=== PATIENT | female | born 1990 | race Caucasian/White ===

== ENCOUNTER 2016-07-02 19:04 | Emergency (ER) | payer BC, OTHER ==
[2016-07-02 19:10] VITALS: TEMP 98
[2016-07-02] MEDS ORDERED: LORazepam 2 MG/ML SYRINGE IV STA (19:33)
[2016-07-02] MEDS ORDERED: SODIUM CHLORIDE 0.9% 1,000 ML IV STA ×2 (19:33)
--- NOTE | 2016-07-02 20:01 | ED ---
General Adult HPI - General Chief complaint: Shortness of Breath Stated complaint: Diff breathing Time Seen by Provider: 07/02/16 19:23 Source: patient, RN notes reviewed Mode of arrival: wheelchair Limitations: no limitations - History of Present Illness Initial comments: Patient 25-year-old female who presents emergency room today with a chief complaint of increased shortness of breath over the last 2 days. [facility]. She states she was given a anti-inflammatory discharged home after chest x-ray and EKG. States she follow-up the family doctor today who gave her inhaler. States no improvement of symptoms. States feeling short of breath like she cannot take a deep breath. She does admit to some numbness tingling to her hands and feet bilaterally. She denies any other complaints or associated symptoms. Patient denies any recent fever, chills, chest pain, back pain, abdominal pain, nausea or vomiting, dysuria or hematuria, constipation or diarrhea, headaches or visual changes, or any other complaints. - Related Data Home Medications Medication Instructions Recorded Confirmed Albuterol Sulfate [Proair Hfa] 2 puff INHALATION RT-Q6H PRN 07/02/16 07/02/16 Phentermine HCl [Adipex-P] 37.5 mg PO QAM 07/02/16 07/02/16 Previous Rx's Medication Instructions Recorded ALPRAZolam [Xanax] 0.5 mg PO BID #10 tablet 07/02/16 Allergies Allergy/AdvReac Type Severity Reaction Status Date / Time Sulfa (Sulfonamide Allergy Unknown Unknown Verified 07/02/16 22:18 Antibiotics) Childhood Review of Systems ROS Statement: Those systems with pertinent positive or pertinent negative responses have been documented in the HPI. ROS Other: All systems not noted in ROS Statement are negative. Past Medical History Additional Past Medical History / Comment(s): ovarian cyst, blood clotting disorder History of Any Multi-Drug Resistant Organisms: None Reported Past Surgical History: Section Past Psychological History: No Psychological Hx Reported Smoking Status: Never smoker Past Alcohol Use History: None Reported Past Drug Use History: None Reported General Exam - General Exam Comments Initial Comments: General: The patient is awake and alert, in no distress, and does not appear acutely ill. Eye: Pupils are equal, round and reactive to light, extra-ocular movements are intact. No nystagmus. There is normal conjunctiva bilaterally. No signs of icterus. Ears, nose, mouth and throat: There are moist mucous membranes and no oral lesions. Neck: The neck is supple, there is no tenderness or JVD. Cardiovascular: There is a regular rate and rhythm. No murmur, rub or gallop is appreciated. Respiratory: Lungs are clear to auscultation, respirations are non-labored, breath sounds are equal. No wheezes, stridor, rales, or rhonchi. Gastrointestinal: Soft, non-distended, non-tender abdomen without masses or organomegaly noted. There is no rebound or guarding present. No CVA tenderness. Bowel sounds are unremarkable. Musculoskeletal: Normal ROM, no tenderness. Strength 5/5. Sensation intact. Pulses equal bilaterally 2+. Neurological: A&O x 3. CN II-XII intact, There are no obvious motor or sensory deficits. Coordination appears grossly intact. Speech is normal. Skin: Skin is warm and dry and no rashes or lesions are noted. Psychiatric: Cooperative, appropriate mood & affect, normal judgment. Limitations: no limitations Course Vital Signs 07/02/16 07/02/16 19:07 19:47 Temperature 98.0 F Pulse Rate 130 H 73 Respiratory 24 16 Rate Blood Pressure 217/80 118/71 O2 Sat by Pulse 100 100 Oximetry EKG Findings - EKG Comments: EKG Findings:: EKG performed at 1940: Shows normal sinus rhythm at 96 beats per minute. VT interval 114. QRS 82. QT/QTC 346/437. No acute ST changes. Medical Decision Making - Medical Decision Making Patient reexamined at this time shows no signs of distress. Patient's pulse ox 100% on room air. Patient's labs from [facility] reviewed had a negative D-dimer test. Labs were unremarkable. Chest x-ray. Chest x-ray 2 days. Patient's labs reviewed are negative. Negative cardiac enzymes. Patient still feeling short of breath at times. Improved after Ativan. Admits numbness tingling bilateral Upper and lower extremities. Was discussed patient about hyperventilation syndrome. CT of the chest was performed to rule out any PE. CT was negative. Results discussed with patient. Patient discharged home advised used an inhaler for symptoms. Was discussed about possible bronchospasm. Will be given a prescription of Xanax to go home with to use if symptoms persist at home. Advised to return if any symptoms are not controlled at home. Advised to follow-up family doctor in the next 1-2 days. - Lab Data Result diagrams: 07/02/16 20:00 07/02/16 20:00 Lab Results 07/02/16 07/02/16 07/02/16 Range/Units 20:00 20:00 20:00 WBC 6.4 (3.8-10.6) k/uL RBC 4.69 (3.80-5.40) m/uL Hgb 12.8 (11.4-16.0) gm/dL Hct 40.0 (34.0-46.0) % MCV 85.2 (80.0-100.0) fL MCH 27.4 (25.0-35.0) pg MCHC 32.1 (31.0-37.0) g/dL RDW 12.7 (11.5-15.5) % Plt Count 228 (150-450) k/uL Neutrophils % 63 % Lymphocytes % 29 % Monocytes % 6 % Eosinophils % 1 % Basophils % 0 % Neutrophils # 4.0 (1.3-7.7) k/uL Lymphocytes # 1.8 (1.0-4.8) k/uL Monocytes # 0.4 (0-1.0) k/uL Eosinophils # 0.0 (0-0.7) k/uL Basophils # 0.0 (0-0.2) k/uL PT (9.0-12.0) sec INR (<1.1) APTT (22.0-30.0) sec Sodium 144 (137-145) mmol/L Potassium 3.7 (3.5-5.1) mmol/L Chloride 112 H (98-107) mmol/L Carbon Dioxide 16 L (22-30) mmol/L Anion Gap 16 mmol/L BUN 9 (7-17) mg/dL Creatinine 0.69 (0.52-1.04) mg/dL Est GFR (MDRD) Af Amer >60 (>60 ml/min/1.73 sqM) Est GFR (MDRD) Non-Af >60 (>60 ml/min/1.73 sqM) Glucose 114 H (74-99) mg/dL Calcium 9.4 (8.4-10.2) mg/dL Total Bilirubin 0.4 (0.2-1.3) mg/dL AST 16 (14-36) U/L ALT 26 (9-52) U/L Alkaline Phosphatase 65 (38-126) U/L Total Creatine Kinase 38 (30-135) U/L CK-MB (CK-2) <0.2 (0.0-2.4) ng/mL CK-MB (CK-2) Rel Index Troponin I <0.012 (0.000-0.034) ng/mL Total Protein 7.5 (6.3-8.2) g/dL Albumin 4.3 (3.5-5.0) g/dL 07/02/16 Range/Units 20:00 WBC (3.8-10.6) k/uL RBC (3.80-5.40) m/uL Hgb (11.4-16.0) gm/dL Hct (34.0-46.0) % MCV (80.0-100.0) fL MCH (25.0-35.0) pg MCHC (31.0-37.0) g/dL RDW (11.5-15.5) % Plt Count (150-450) k/uL Neutrophils % % Lymphocytes % % Monocytes % % Eosinophils % % Basophils % % Neutrophils # (1.3-7.7) k/uL Lymphocytes # (1.0-4.8) k/uL Monocytes # (0-1.0) k/uL Eosinophils # (0-0.7) k/uL Basophils # (0-0.2) k/uL PT 11.2 (9.0-12.0) sec INR 1.1 (<1.1) APTT 24.9 (22.0-30.0) sec Sodium (137-145) mmol/L Potassium (3.5-5.1) mmol/L Chloride (98-107) mmol/L Carbon Dioxide (22-30) mmol/L Anion Gap mmol/L BUN (7-17) mg/dL Creatinine (0.52-1.04) mg/dL Est GFR (MDRD) Af Amer (>60 ml/min/1.73 sqM) Est GFR (MDRD) Non-Af (>60 ml/min/1.73 sqM) Glucose (74-99) mg/dL Calcium (8.4-10.2) mg/dL Total Bilirubin (0.2-1.3) mg/dL AST (14-36) U/L ALT (9-52) U/L Alkaline Phosphatase (38-126) U/L Total Creatine Kinase (30-135) U/L CK-MB (CK-2) (0.0-2.4) ng/mL CK-MB (CK-2) Rel Index Troponin I (0.000-0.034) ng/mL Total Protein (6.3-8.2) g/dL Albumin (3.5-5.0) g/dL Disposition Clinical Impression: Dyspnea Disposition: HOME SELF-CARE Condition: Good Instructions: Bronchospasm (ED), Hyperventilation (ED) Additional Instructions: Please use albuterol inhaler if symptoms increase at home. If unimproved please use Xanax. Please follow-up with family doctor in the next 1-2 days. Please return to emergency room if the symptoms increase or worsen or for any other concerns. Prescriptions: ALPRAZolam [Xanax] 0.5 mg PO BID #10 tablet Time of Disposition: 22:31
[2016-07-02 20:19] LABS: Basophils % (A) 0 %; CH 28.5; CHCM 33.6; Eosinophils % (A) 1 %; HDW 2.48; HGB 12.8 gm/dL (11.4-16.0); Luc % (Auto) 2; Lymphocytes # (A) 1.8 k/uL (1.0-4.8); Lymphocytes % (A) 29 %; MCH 27.4 pg (25.0-35.0); MCHC 32.1 g/dL (31.0-37.0); MCV 85.2 fL (80.0-100.0); Mean Platelet Volume 7.4; Monocytes # (A) 0.4 k/uL (0-1.0); Monocytes % (A) 6 %; Neutrophils % (A) 63 %; RBC 4.69 m/uL (3.80-5.40); RDW 12.7 % (11.5-15.5); WBC 6.4 k/uL (3.8-10.6); WBC (Perox) 6.53
--- NOTE | 2016-07-02 20:23 | XR ---
EXAMINATION TYPE: XR chest 2V DATE OF EXAM: 07/02/2016 8:15 PM COMPARISON: 01/09/2010 HISTORY: Chest pain TECHNIQUE: Frontal and lateral views of the chest are obtained. FINDINGS: There is no focal air space opacity. No evidence for pnuemothorax.No pleural effusion. The cardiac silhouette size is within normal limits. The osseous structures are grossly intact. IMPRESSION: 1. No acute cardiopulmonary process.
[2016-07-02 20:28] LABS: INR 1.1 (<1.1); Partial Thromboplastin Time 24.9 sec (22.0-30.0); Prothrombin Time 11.2 sec (9.0-12.0)
[2016-07-02 20:29] LABS: ALT 26 U/L (9-52); AST 16 U/L (14-36); Alkaline Phosphatase 65 U/L (38-126); Anion Gap 16 mmol/L; Blood Urea Nitrogen 9 mg/dL (7-17); Calcium 9.4 mg/dL (8.4-10.2); Carbon Dioxide 16 mmol/L (22-30); Chloride 112 mmol/L (98-107); Glucose 114 mg/dL (74-99); Non-African American GFR(MDRD) >60 (>60 ml/min/1.73 sqM); Potassium 3.7 mmol/L (3.5-5.1); Sodium 144 mmol/L (137-145); Total Bilirubin 0.4 mg/dL (0.2-1.3); Total Protein 7.5 g/dL (6.3-8.2)
[2016-07-02 20:42] LABS: Creatine Kinase 38 U/L (30-135)
[2016-07-02 20:55] LABS: Creatine Kinase MB <0.2 ng/mL (0.0-2.4); Troponin I <0.012 ng/mL (0.000-0.034)
[2016-07-02] MEDS ORDERED: RX INFO: IV CONTRAST WAS GIVEN 1 EACH MISC MISCELLANE PRN (21:18)
--- NOTE | 2016-07-02 21:57 | CT ---
EXAMINATION TYPE: CT angio chest DATE OF EXAM: 07/02/2016 9:49 PM COMPARISON: NONE HISTORY: difficulty breathing CT DLP: 248 mGycm CONTRAST: CT chest with contrast and 3D reconstruction with MIP imaging is performed with IV Contrast, patient injected with 100 mL of Omnipaque 350. Contrast-enhanced CT of the chest was performed through the course of the pulmonary arteries with jyoti g and mediastinal window settings submitted. 3D reconstruction with MIP imaging was also performed. PULMONARY ARTERIES: The pulmonary arteries and their major tributaries are patent. I do not see maged dence for sizable filling defect to suggest pulmonary embolic process. LUNGS: The lungs are clear and free of infiltrate. No evidence for atelectasis. No pulmonary nodule or mass is detected. No pleural effusion. MEDIASTINUM: Thoracic aorta is of normal caliber . The heart is not enlarged. No evidence for media stinal mass. No mediastinal lymph nodes greater than 1cm. HILAR STRUCTURES: No evidence for mass. No hilar lymph nodes greater than 1 cm. UPPER ABDOMEN: No significant abnormality is seen. IMPRESSION: 1. No evidence for Pulmonary embolism at this time.
[2016-07-02 22:54] VITALS: BP 119/66; PULSE 78; RESP 18
== END 2016-07-02 22:51 | disposition home or self-care (01) ==
LOC: EC 19:04
DX: R06.00 Dyspnea, unspecified (principal); Z79.899 Other long term (current) drug therapy; Z88.2 Allergy status to sulfonamides; R06.02 Shortness of breath; R20.0 Anesthesia of skin
CPT/HCPCS: 36415; 93005; 80053; 82550; 82553; 84484; 85025; 85610; 85730; 71020; 71275; 96374; 96361 ×3; 99285; J2060; Q9967

== ENCOUNTER → 2016-07-11 | Outpatient (CLI) | payer BC, OTHER ==
--- NOTE | 2016-07-12 08:31 | ECHOF ---
Referral Reason:R00.2 palpitations R06.02 sob MEASUREMENTS -------- HEIGHT: 160.0 cm WEIGHT: 80.3 kg BP: RVIDd: 2.5 cm (< 3.3) IVSd: 0.8 cm (0.6 - 1.1) LVIDd: 4.4 cm (3.9 - 5.3) LVPWd: 1.2 cm (0.6 - 1.1) IVSs: 1.0 cm LVIDs: 3.1 cm LVPWs: 1.0 cm LA Diam: 2.9 cm (2.7 - 3.8) LAESV Index (A-L): 18.78 ml/m Ao Diam: 2.8 cm (2.0 - 3.7) AV Cusp: 1.5 cm (1.5 - 2.6) LA Diam: 2.8 cm (2.7 - 3.8) MV EXCURSION: 22.278 mm (> 18.000) MV EF SLOPE: 122 mm/s (70 - 150) EPSS: 0.3 cm MV E Michael: 0.87 m/s MV DecT: 168 ms MV A Michael: 0.47 m/s MV E/A Ratio: 1.85 FINDINGS -------- Sinus rhythm. This was a technically good study. LV size, wall thickness and systolic function are normal, with an EF greater than 55%. The right ventricle is normal in size. The left atrial size is normal. The right atrial size is normal. The aortic valve is trileaflet, and appears structurally normal. No aortic stenosis or regurgitation. There is no evidence of aortic regurgitation. The mitral valve leaflets are mildly thickened. Mild mitral regurgitation is present. Mild tricuspid regurgitation present. There is no evidence of pulmonary hypertension. The right ventricular systolic pressure, as measured by Doppler, is {RVSP}. Trace/mild (physiologic) pulmonic regurgitation. The aortic root size is normal. There is no pericardial effusion. CONCLUSIONS -------- 1. This was a technically good study. 2. LV size, wall thickness and systolic function are normal, with an EF greater than 55%. 3. The left atrial size is normal. 4. The aortic valve is trileaflet, and appears structurally normal. No aortic stenosis or regurgitation. 5. The mitral valve leaflets are mildly thickened. 6. Mild mitral regurgitation is present. 7. Mild tricuspid regurgitation present. 8. There is no evidence of pulmonary hypertension. CLINICAL ASSISTANT: Leila Fan RDCS
== END | disposition home or self-care (01) ==
LOC: RADECHMAIN 12:47
PROVIDERS: ATTEND Internal Medicine
DX: I08.1 Rheumatic disorders of both mitral and tricuspid valves (principal); I49.1 Atrial premature depolarization
CPT/HCPCS: 93225; 93226; 93306

== ENCOUNTER → 2016-10-28 | Outpatient (CLI) | payer BC, OTHER ==
[2016-10-28 16:03] LABS: Follicle Stimulating Hormone 5.3 mIU/mL; Prolactin 13.9 ng/mL (3.0-18.6)
--- NOTE | 2016-10-28 16:59 | US ---
EXAMINATION TYPE: US pelvis complete transvag DATE OF EXAM: 10/28/2016 3:48 PM COMPARISON: NONE CLINICAL HISTORY: N92.0 MENORRHAGIA. TECHNIQUE: TA and TV pelvic ultrasound. Date of LMP: unknown EXAM MEASUREMENTS: Uterus: 8.9 x 4.4 x 4.2cm Endometrial Stripe: 0.9 cm Right Ovary: 2.8 x 2.7 x 1.4 cm Left Ovary: 1.7 x 1.2 x 1.5 cm 1. Uterus: Anteverted wnl 2. Endometrium: wnl 3. Right Ovary: wnl, only seen transabdominally 4. Left Ovary: wnl, only seen transabdominally 5. Bilateral Adnexa: wnl 6. Posterior cul-de-sac: wnl Endometrium not well identified on transabdominal or transvaginal imaging due to underlying heterogen eity of uterus. No free fluid is seen in pelvis. Scattered tiny nabothian cysts are suspected in the cervix. Ovaries are not well seen but felt within normal limits on transabdominal evaluation. No suspicious a dnexal masses are present. IMPRESSION: Poor visualization of endometrium, consider pelvic MRI study to better evaluate uterus an d endometrium.
[2016-10-29 13:23] LABS: Protein C (Activity) 94 % (70 - 130)
[2016-10-31 11:40] LABS: Free Protein S Antigen 78 % (50 - 147)
== END | disposition home or self-care (01) ==
LOC: RADUSWWP 14:50
PROVIDERS: ATTEND Obstetrics & Gynecology
DX: N92.0 Excessive and frequent menstruation with regular cycle (principal)
CPT/HCPCS: 76830; 76856; 81240; 81241; 81291; 83001; 83002; 84146; 84443; 85300; 85303; 85306

== ENCOUNTER 2016-11-08 00:56 | Emergency (ER) | payer BC, OTHER ==
[2016-11-08 01:13] VITALS: BP 122/73; PULSE 83; RESP 18; TEMP 97
[2016-11-08] MEDS ORDERED: CLOTRIMAZOLE/BETAMETH 1-0.05% CREAM 45 GM TUBE TOPICAL STA (01:24)
--- NOTE | 2016-11-08 01:27 | ED ---
Skin/Abscess/FB HPI - General Chief complaint: Skin/Abscess/Foreign Body Stated complaint: Sore on Breast Time Seen by Provider: 11/08/16 01:14 Source: patient, RN notes reviewed Mode of arrival: ambulatory Limitations: no limitations - History of Present Illness Initial comments: 26-year-old female presents emergency Department chief complaint right breast rash. Patient states her some itchiness and erythema noted to the skin. She states it seems to come and go but states that she saw her [employer] who thought it was a fungal infection. She screamed twice daily for a couple weeks ago relief. She states that it is more itchy at this time. She does have an appointment with a platform beater though for not another 10 days. Patient states she cannot tolerate itching at this time. - Related Data Home Medications Medication Instructions Recorded Confirmed Albuterol Sulfate [Proair Hfa] 2 puff INHALATION RT-Q6H PRN 07/02/16 07/02/16 Phentermine HCl [Adipex-P] 37.5 mg PO QAM 07/02/16 07/02/16 Previous Rx's Medication Instructions Recorded ALPRAZolam [Xanax] 0.5 mg PO BID #10 tablet 07/02/16 Allergies Allergy/AdvReac Type Severity Reaction Status Date / Time Sulfa (Sulfonamide Allergy Unknown Rash/Hives Verified 11/08/16 01:10 Antibiotics) Review of Systems ROS Statement: Those systems with pertinent positive or pertinent negative responses have been documented in the HPI. ROS Other: All systems not noted in ROS Statement are negative. Past Medical History Additional Past Medical History / Comment(s): ovarian cyst, blood clotting disorder History of Any Multi-Drug Resistant Organisms: None Reported Past Surgical History: Section Past Psychological History: No Psychological Hx Reported Smoking Status: Never smoker Past Alcohol Use History: None Reported Past Drug Use History: None Reported General Exam Limitations: no limitations General appearance: alert, in no apparent distress Head exam: Present: atraumatic, normocephalic, normal inspection Respiratory exam: Present: normal lung sounds bilaterally. Absent: respiratory distress, wheezes, rales, rhonchi, stridor Cardiovascular Exam: Present: regular rate, normal rhythm, normal heart sounds. Absent: systolic murmur, diastolic murmur, rubs, gallop, clicks Skin exam: Present: rash (Right breast and the 12:00 to move 3 o'clock position there is erythematous minimally slightly scaly dry skin noted with no defined borders there is no orange peeling no nipple retraction no masses palpable area is nontender) Course Vital Signs 11/08/16 01:10 Temperature 97.0 F L Pulse Rate 83 Respiratory 18 Rate Blood Pressure 122/73 O2 Sat by Pulse 100 Oximetry Medical Decision Making - Medical Decision Making 26-year-old female presented for right breast rash. This appears to be some sort of dermatitis. This may be fungal related though less likely. Patient placed on Lotrisone to cover for antifungal and generalized dermatitis. She does have follow-up appointment with platform beater. Patient has no masses no loss palpable. Disposition Clinical Impression: Dermatitis Disposition: HOME SELF-CARE Condition: Stable Instructions: Skin Yeast Infection (ED), Dermatitis (ED) Additional Instructions: Please return to the Emergency Department if symptoms worsen or any other concerns. Referrals: Sukhdev Hinojosa MD [Primary Care Provider] - 1-2 days Time of Disposition: 01:27
== END 2016-11-08 01:42 | disposition home or self-care (01) ==
LOC: EC 00:56
DX: L30.9 Dermatitis, unspecified (principal); Z79.899 Other long term (current) drug therapy; Z88.2 Allergy status to sulfonamides
CPT/HCPCS: 99282

== ENCOUNTER → 2017-01-03 | Outpatient (CLI) | payer BC, OTHER ==
[2017-01-03 11:07] LABS: Basophils % (A) 0 %; CH 28.5; CHCM 31.8; Eosinophils # (A) 0.1 k/uL (0-0.7); Eosinophils % (A) 1 %; HCT 39.1 % (34.0-46.0); HDW 2.26; HGB 12.5 gm/dL (11.4-16.0); Luc # (Auto) 0.13; Luc % (Auto) 2; Lymphocytes # (A) 1.8 k/uL (1.0-4.8); Lymphocytes % (A) 31 %; MCH 28.9 pg (25.0-35.0); MCHC 32.1 g/dL (31.0-37.0); MCV 90.2 fL (80.0-100.0); Mean Platelet Volume 7.3; Monocytes # (A) 0.3 k/uL (0-1.0); Monocytes % (A) 5 %; Neutrophils # (A) 3.5 k/uL (1.3-7.7); Neutrophils % (A) 61 %; RBC 4.33 m/uL (3.80-5.40); RDW 12.4 % (11.5-15.5); WBC 5.8 k/uL (3.8-10.6); WBC (Perox) 5.69
== END | disposition home or self-care (01) ==
LOC: LABPAT 10:50
PROVIDERS: ATTEND Obstetrics & Gynecology
DX: Z01.812 Encounter for preprocedural laboratory examination (principal)
CPT/HCPCS: 85025

== ENCOUNTER 2017-01-08 06:38 | Day surgery (SDC) | payer BC, OTHER ==
[2017-01-01 15:59] VITALS: BMI 25.4
[~2017-01-08 06:38] MED LIST: DEXAMETHASONE SOD PHOSPHATE 10 MG/ML 1 ML VIAL IV ONE; LIDOCAINE 1% 20 ML VIAL (10MG/ML) FOR IV START INTRADERMA PRN; ONDANSETRON 4 MG/2 ML VIAL IVP ONE; Pre Op ABX Message 1 EACH MISC MISCELLANE ONE; SCOPOLAMINE 1.5MG/72HR PATCH TRANSDERM ONE
[2017-01-08] MEDS: LACTATED RINGERS 1,000 ML IV SCH ×2 (07:02→07:24)
[2017-01-08] MEDS ORDERED: fentaNYL (PF) 50 MCG/ML 2 ML AMP ONE (07:26)
[2017-01-08] MEDS ORDERED: PROPOFOL 10 MG/ML 20 ML VIAL IV ONE (07:26)
[2017-01-08] MEDS ORDERED: MIDAZOLAM 2 MG/2 ML VIAL ONE (07:26)
[2017-01-08] MEDS ORDERED: KETOROLAC 30 MG/ML 1 ML VIAL ONE (07:26)
[2017-01-08] MEDS ORDERED: LIDOCAINE 1% INJ 10MG/ML (20 ML MDV) ONE (07:26)
--- NOTE | 2017-01-08 07:26 | P.HPOB ---
History of Present Illness H&P Date: 01/08/17 Chief Complaint: Menorrhagia and dysmenorrhea Adelina is a 26-year-old female that has heavy vaginal bleeding that it causes her significant pain. Symptoms present for number of months and she is unable to function while she is on her period. Ultrasound lab work generally speaking unremarkable we did discuss options such as Mirena IUD or control to regulate her cycles however she refuses as her had a vasectomy and she does not want to be on any hormones. Risks/benefits/alternatives to a D&C with hysteroscopy and NovaSure were discussed with the patient in detail and all questions are answered for her prior to proceeding to the operating room. On physical exam vital signs are stable and afebrile. Heart regular, lungs clear, extremities without pain. Abdomen soft positive bowel sounds are noted. Pelvic exam generally is unremarkable. Assessment menorrhagia/dysmenorrhea. Plan D&C with hysteroscopy and NovaSure Past Medical History Additional Past Medical History / Comment(s): ovarian cyst, "blood clotting disorder" pt unaware of type, abnormal vaginal bleeding History of Any Multi-Drug Resistant Organisms: None Reported Past Surgical History: Section Additional Past Surgical History / Comment(s): c/s x2 Past Anesthesia/Blood Transfusion Reactions: No Reported Reaction Additional Past Anesthesia/Blood Transfusion Reaction / Comment(s): has never had general anesthesia Past Psychological History: No Psychological Hx Reported Smoking Status: Never smoker Past Alcohol Use History: None Reported Past Drug Use History: None Reported - Past Family History Mother Family Medical History: No Reported History Medications and Allergies Home Medications Medication Instructions Recorded Confirmed Type Albuterol Sulfate [Proair Hfa] 2 puff INHALATION RT-Q6H PRN 07/02/16 01/08/17 History Phentermine HCl [Adipex-P] 37.5 mg PO QAM 07/02/16 01/08/17 History Allergies Allergy/AdvReac Type Severity Reaction Status Date / Time Sulfa (Sulfonamide Allergy Unknown Rash/Hives Verified 01/08/17 06:54 Antibiotics) Exam Osteopathic Statement: *. No significant issues noted on an osteopathic structural exam other than those noted in the History and Physical/Consult. - Vital Signs Vital signs: Vital Signs Temp Pulse Resp BP Pulse Ox 01/08/17 06:52 98.3 F 86 18 102/59 100
--- NOTE | 2017-01-08 07:53 | P.OP ---
Date of Procedure: 01/08/17 Preoperative Diagnosis: Menorrhagia Postoperative Diagnosis: Same with polyp Procedure(s) Performed: D&C with hysteroscopy and NovaSure Implants: Anesthesia: GETA Surgeon: Hank Guadalupe Estimated Blood Loss (ml): 5 Pathology: other (Uterine curettings) Condition: stable Disposition: same day Indications for Procedure: Operative Findings: Polyp noted on hysteroscopy appears to be removed in toto Description of Procedure: Patient states the operating suite where a general anesthetic was found be adequate. She was prepped and draped in normal sterile fashion placed in dorsal lithotomy position. Initially weighted speculum was inserted into the vagina and the anterior lip cervix was grasped with a single-tooth tenaculum. Cervix was then dilated and sounded to 9 cm. Camera was inserted polyp was noted. No other gross pathology was noted therefore camera was removed and sharp curettings of the endometrium were obtained. This tissue was collected and placed on Telfa. Once this was accomplished NovaSure system was inserted with length of 4.5 and a width of 2.6 it was tested and then enabled. At the conclusion of the burn NovaSure system was removed and the camera reinserted. Excellent burn was noted therefore all instruments were removed sponge, lap, needle counts were all correct 2 and patient was then taken to the recovery room in stable and satisfactory condition. Plan - Discharge Summary New Discharge Prescriptions: New Ibuprofen [Motrin] 600 mg PO Q6HR PRN #30 tab PRN Reason: Pain No Action Phentermine HCl [Adipex-P] 37.5 mg PO QAM Albuterol Sulfate [Proair Hfa] 2 puff INHALATION RT-Q6H PRN PRN Reason: Shortness Of Breath Discharge Medication List Albuterol Sulfate [Proair Hfa] 2 puff INHALATION RT-Q6H PRN 07/02/16 [History] Phentermine HCl [Adipex-P] 37.5 mg PO QAM 07/02/16 [History] Ibuprofen [Motrin] 600 mg PO Q6HR PRN #30 tab 01/08/17 [Rx] Follow up Appointment(s)/Referral(s): Hank Guadalupe DO [Doctor of Osteopathic Medicine] - 1 Week Activity/Diet/Wound Care/Special Instructions: No heavy lifting, limit stairs and driving, and pelvic rest if any high temperatures, heavy bleeding, or severe pain call my office
[2017-01-08 08:09] VITALS: RESP 16; TEMP 97.5
[2017-01-08] MEDS: HYDROmorphone 1 MG/ML 1 ML SYRINGE IVP PRN ×2 (08:14→08:22)
[2017-01-08 09:23] VITALS: BP 104/45; PULSE 65
== END 2017-01-08 09:49 | disposition home or self-care (01) ==
LOC: OR 06:38
PROVIDERS: ATTEND Obstetrics & Gynecology
DX: N92.0 Excessive and frequent menstruation with regular cycle (principal); N84.0 Polyp of corpus uteri; Z79.899 Other long term (current) drug therapy; Z88.2 Allergy status to sulfonamides
CPT/HCPCS: 81025; 88305; 58563; J2250; J1100; J2405; J2001; J3010; J1885; J1170; J2704

== ENCOUNTER 2017-11-30 09:35 | Day surgery (SDC) | payer BC, OTHER ==
[2017-11-25 16:10] VITALS: BMI 27.1
[~2017-11-30 09:35] MED LIST changes: -DEXAMETHASONE SOD PHOSPHATE 10 MG/ML 1 ML VIAL IV ONE; +LACTATED RINGERS 1,000 ML IV SCH; -LIDOCAINE 1% 20 ML VIAL (10MG/ML) FOR IV START INTRADERMA PRN; -ONDANSETRON 4 MG/2 ML VIAL IVP ONE; -Pre Op ABX Message 1 EACH MISC MISCELLANE ONE; -SCOPOLAMINE 1.5MG/72HR PATCH TRANSDERM ONE
[2017-11-30 10:08] VITALS: RESP 16; TEMP 98.1
[2017-11-30] MEDS ORDERED: PROPOFOL 10 MG/ML 20 ML VIAL IV ONE (10:40)
--- NOTE | 2017-11-30 11:09 | P.PCN ---
Date of Procedure: 11/30/17 Procedure(s) Performed: Procedure: Total colonoscopy. Preoperative diagnosis: Change in bowel habits and abdominal pain. Postoperative diagnosis: Exam of the colon and terminal ileum within normal limits. Preparation: HalfLytely prep. Sedation: Was provided by anesthesia. Brief clinical history: The patient is a 27-year-old female who is scheduled for this evaluation because of change in bowel habits. The patient had chronic issues with constipation having a bowel movement once a week on the average with more recent change whereby she was experiencing abdominal pains and bouts of diarrhea. There is family history of colon cancer on her mother's side of the family and her mother had multiple polyps removed. This would be the patient's first colonoscopy. Procedure: With the patient on her left lateral decubitus position and after informed consent and adequate sedation, the perianal area was inspected and it did not show any fissures or fistulas. There were no masses felt on digital rectal examination. The Olympus CFQ 160L video colonoscope was then inserted in the rectum in the usual fashion and advanced to the cecum. I intubated the ileocecal valve and examined the terminal ileum. Terminal ileum and colon appeared healthy with no edema, erythema, friability, ulceration, exudation or spontaneous bleeding. No obvious diverticular disease or other pathology. No biopsies were obtained. I retroflexed the endoscope in the rectum before the endoscope was withdrawn. The patient tolerated the procedure well. Plan: The patient was reassured. Discussed dietary measures. She will follow- up with you as planned. With her strong family history of colon cancer and polyps I suggested repeat exam in 10 years.
[2017-11-30 11:50] VITALS: BP 95/62; PULSE 67
== END 2017-11-30 12:03 | disposition home or self-care (01) ==
LOC: ORWHC2ENDO 09:35
DX: R19.7 Diarrhea, unspecified (principal); R10.9 Unspecified abdominal pain; K59.00 Constipation, unspecified; Z80.0 Family history of malignant neoplasm of digestive organs; Z83.71 Family history of colonic polyps; N83.209 Unspecified ovarian cyst, unspecified side; Z88.2 Allergy status to sulfonamides
CPT/HCPCS: 81025; 45378; J2704

== ENCOUNTER 2018-01-24 03:54 | Emergency (ER) | payer BC, OTHER ==
[2018-01-24 04:01] VITALS: BP 102/70; PULSE 74; RESP 17; TEMP 98.1
--- NOTE | 2018-01-24 04:09 | ED ---
General Adult HPI - General Chief complaint: ENT Stated complaint: Sore Throat Time Seen by Provider: 01/24/18 04:09 Source: patient Mode of arrival: ambulatory Limitations: no limitations - History of Present Illness Initial comments: Review sleep healthy 27-year-old female presents to the ED today for evaluation of 2 days of sore throat. Patient reports that she has frequent sore throats but they usually resolve with supportive measures. She reports that she developed a sore throat on Thursday evening, she woke from sleep Thursday during the night with worsening sore throat but was able to treat it with liquid Tylenol and drinking fluids. She had a mild sore throat throughout the day on Thursday and woke this morning with a very severe sore throat she took Tylenol but states the sore throats the worst ever been so she came to the ER for evaluation. She also notes some pressure in her right ear as well as some anterior cervical lymphadenopathy. Patient denies any fevers, chills, chest pain, palpitations, cough, shortness of breath, rhinorrhea or congestion. She denies any seasonal ALLERGIES. She does have multiple children at home but denies any of them having similar illness. She denies any known sick contacts. She doesn't have a history of recurrent strep pharyngitis. She has not been evaluated by ENT in the past. - Related Data Home Medications Medication Instructions Recorded Confirmed Phentermine HCl [Adipex-P] 37.5 mg PO QAM PRN 07/02/16 11/30/17 Previous Rx's Medication Instructions Recorded Cephalexin [Keflex] 500 mg PO BID #20 capsule 01/24/18 Allergies Allergy/AdvReac Type Severity Reaction Status Date / Time Sulfa (Sulfonamide Allergy Unknown Rash/Hives Verified 01/24/18 04:01 Antibiotics) Review of Systems ROS Statement: Those systems with pertinent positive or pertinent negative responses have been documented in the HPI. ROS Other: All systems not noted in ROS Statement are negative. Past Medical History Additional Past Medical History / Comment(s): Hx of ovarian cyst, current issues with diarrhea and constipation. History of Any Multi-Drug Resistant Organisms: None Reported Past Surgical History: Section, Uterine Ablation Additional Past Surgical History / Comment(s): Ceserean Section X2. Past Anesthesia/Blood Transfusion Reactions: No Reported Reaction Past Psychological History: Anxiety Smoking Status: Never smoker Past Alcohol Use History: None Reported Past Drug Use History: None Reported - Past Family History Mother Family Medical History: No Reported History General Exam Limitations: no limitations General appearance: alert, in no apparent distress Head exam: Present: atraumatic, normocephalic Eye exam: Present: normal appearance, PERRL ENT exam: Present: other (Pharyngeal erythema with exudates noted greater on the right than the left. Uvula is midline) Neck exam: Present: full ROM, lymphadenopathy Respiratory exam: Absent: respiratory distress, wheezes Cardiovascular Exam: Present: regular rate, normal rhythm GI/Abdominal exam: Present: soft. Absent: distended Rectal exam: Present: deferred Extremities exam: Present: full ROM Neurological exam: Present: alert, oriented X3 Psychiatric exam: Present: normal affect, normal mood Skin exam: Present: warm, dry. Absent: rash Course Vital Signs 01/24/18 03:58 Temperature 98.1 F Pulse Rate 74 Respiratory 17 Rate Blood Pressure 102/70 O2 Sat by Pulse 99 Oximetry Medical Decision Making - Medical Decision Making was seen and evaluated, history was obtained from the patient. Patient with history of recurrent sore throats but this is worse than usual. Patient presenting with sore throat, tender cervical lymphadenopathy, absence of cough - this time I have a high suspicion for strep pharyngitis and I will treat as such. I discussed with the patient options for rapid strep and awaiting culture versus treating now. Patient is agreeable to treating now. First dose of Keflex will be given in the ER. IM Toradol for pain management. Patient will be discharged home with Keflex 500 mg every 12 for 10 days. All questions pertaining to care were answered to the best my ability patient was discharged home in stable condition Disposition Clinical Impression: Pharyngitis Disposition: HOME SELF-CARE Condition: Good Instructions: Pharyngitis (ED) Prescriptions: Cephalexin [Keflex] 500 mg PO BID #20 capsule Is patient prescribed a controlled substance at d/c from ED?: No Referrals: Sukhdev Hinojosa MD [Primary Care Provider] - 1-2 days Time of Disposition: 04:27
[2018-01-24] MEDS ORDERED: KETOROLAC 30 MG/ML 1 ML VIAL IM STA (04:20)
[2018-01-24] MEDS ORDERED: CEPHALEXIN 500MG STARTER PACK 4 CAP BTL PO STA (04:20)
== END 2018-01-24 04:46 | disposition home or self-care (01) ==
LOC: EC 03:54
DX: J02.9 Acute pharyngitis, unspecified (principal); Z88.2 Allergy status to sulfonamides
CPT/HCPCS: 87081; 87430; 99283; 96372; J1885

== ENCOUNTER 2018-01-26 06:33 | Emergency (ER) | payer BC, OTHER ==
[2018-01-26 06:38] VITALS: BP 106/67; PULSE 75; RESP 18; TEMP 98.2
[2018-01-26] MEDS ORDERED: DEXAMETHASONE SOD PHOSPHATE 10 MG/ML 1 ML VIAL IM STA (06:45)
--- NOTE | 2018-01-26 06:48 | ED ---
General Adult HPI - General Chief complaint: ENT Stated complaint: Sore throat, cough Time Seen by Provider: 01/26/18 06:42 Source: patient, RN notes reviewed, old records reviewed Mode of arrival: ambulatory Limitations: no limitations - History of Present Illness Initial comments: 27-year-old female presented to the emergency room today with a chief complaint of a sore throat 4 days. She has been she was seen here in the emergency room 2 days ago for this. Patient states that she was started on antibiotics. She states she has been no improvement. She admits to rhinorrhea with some cough congestion and some ear pressure. States still experiencing a sore throat when she swallows. Denies any difficulty swallowing. Denies any other complaints or symptoms. Patient denies any recent fever, chills, shortness of breath, chest pain, back pain, abdominal pain, nausea or vomiting, numbness or tingling , headaches or visual changes, or any other complaints. - Related Data Home Medications Medication Instructions Recorded Confirmed Phentermine HCl [Adipex-P] 37.5 mg PO QAM PRN 07/02/16 11/30/17 Previous Rx's Medication Instructions Recorded Cephalexin [Keflex] 500 mg PO BID #20 capsule 01/24/18 Allergies Allergy/AdvReac Type Severity Reaction Status Date / Time Sulfa (Sulfonamide Allergy Unknown Rash/Hives Verified 01/26/18 06:38 Antibiotics) Review of Systems ROS Statement: Those systems with pertinent positive or pertinent negative responses have been documented in the HPI. ROS Other: All systems not noted in ROS Statement are negative. Past Medical History Additional Past Medical History / Comment(s): Hx of ovarian cyst, current issues with diarrhea and constipation. History of Any Multi-Drug Resistant Organisms: None Reported Past Surgical History: Section, Uterine Ablation Additional Past Surgical History / Comment(s): Ceserean Section X2. Past Anesthesia/Blood Transfusion Reactions: No Reported Reaction Past Psychological History: Anxiety Smoking Status: Never smoker Past Alcohol Use History: None Reported Past Drug Use History: None Reported - Past Family History Mother Family Medical History: No Reported History General Exam - General Exam Comments Initial Comments: General: The patient is awake and alert, in no distress, and does not appear acutely ill. Eye: Pupils are equal, round and reactive to light, extra-ocular movements are intact. No nystagmus. There is normal conjunctiva bilaterally. No signs of icterus. Ears, nose, mouth and throat: There are moist mucous membranes and no oral lesions. Mild redness of the posterior pharynx. No exudate. Uvula midline. Patient swallows without difficulty. TMs clear bilaterally. Neck: The neck is supple, there is no tenderness or JVD. Cardiovascular: There is a regular rate and rhythm. No murmur, rub or gallop is appreciated. Respiratory: Lungs are clear to auscultation, respirations are non-labored, breath sounds are equal. No wheezes, stridor, rales, or rhonchi. Musculoskeletal: Normal ROM, no tenderness. Sensation intact. Neurological: A&O x 3. CN II-XII intact, There are no obvious motor or sensory deficits. Coordination appears grossly intact. Speech is normal. Skin: Skin is warm and dry and no rashes or lesions are noted. Psychiatric: Cooperative, appropriate mood & affect, normal judgment. Limitations: no limitations Course Vital Signs 01/26/18 06:34 Temperature 98.2 F Pulse Rate 75 Respiratory 18 Rate Blood Pressure 106/67 O2 Sat by Pulse 98 Oximetry Medical Decision Making - Medical Decision Making Patient's previous visit to the emergency room was reviewed. Culture was obtained negative for strep throat current culture is negative for any bacteria. Patient will be given dose of steroids here in the emergency room. Advised most likely viral illness. Advised to continue follow-up with family physician returning here in the emergency room symptoms increase or worsen. Disposition Clinical Impression: Pharyngitis Disposition: HOME SELF-CARE Condition: Good Instructions: Pharyngitis (ED) Additional Instructions: Please use medication as discussed. Please follow-up with family doctor in the next 2 days of symptoms have not improved. Please return to emergency room if the symptoms increase or worsen or for any other concerns. Is patient prescribed a controlled substance at d/c from ED?: No Referrals: Sukhdev Hinojosa MD [Primary Care Provider] - 1-2 days Time of Disposition: 06:48
== END 2018-01-26 07:01 | disposition home or self-care (01) ==
LOC: EC 06:33
DX: J02.9 Acute pharyngitis, unspecified (principal); Z88.2 Allergy status to sulfonamides
CPT/HCPCS: 99283; 96372; J1100

== ENCOUNTER → 2018-11-03 | Outpatient (CLI) | payer BC, OTHER ==
--- NOTE | 2018-11-03 22:26 | MR ---
EXAMINATION TYPE: MR hip LT wo con DATE OF EXAM: 11/03/2018 COMPARISON: Pelvic and left hip x-ray May 27, 2016 HISTORY: Lt hip pain x 3 yrs, no trauma Standard multiplanar, multisequence MRI departmental protocol Multiplanar, multisequence images of the pelvis focus on the left hip were acquired. FINDINGS: Bone marrow signal intensity in the pelvis focusing on left hip shows no suspicious edema o r increased T2 signal. No suspicious serpiginous low T1 signal is present to suggest avascular necros is. Femoral head shapes are symmetric and maintained bilaterally. No significant spurring or geode fo rmation. There are symmetric small to moderate size hip joint effusions noted bilaterally. Joint spac es show perhaps symmetric mild axial joint space loss. No suspicious T2 signal noted at level of left greater trochanter. Some increased T2 signal noted at level of right greater trochanter. No suspicious groin adenopathy. No suspicious bowel or fat-contain ing groin hernia. Labrum appears grossly intact given limitations of nonarthrogram study. Several small nabothian cysts are present in the cervix. Uterus not well identified. No suspicious lavonne wel dilatation. No concerning pelvic fluid collection. Bladder is unremarkable. 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 Incidental mild right greater trochanteric bursitis.
== END | disposition home or self-care (01) ==
LOC: RADMRIMAIN 21:40
PROVIDERS: ATTEND Internal Medicine
DX: M16.12 Unilateral primary osteoarthritis, left hip (principal)

== ENCOUNTER 2022-10-09 13:39 | Emergency (ER) | payer OTHER ==
[2022-10-09 13:46] VITALS: BP 101/65; PULSE 63; RESP 18; TEMP 98.1
--- NOTE | 2022-10-09 14:21 | XR ---
EXAMINATION TYPE: XR knee complete LT DATE OF EXAM: 10/09/2022 CLINICAL HISTORY: pain TECHNIQUE: Three views of the left knee are obtained. COMPARISON: None. FINDINGS: There is no acute fracture/dislocation. The tri-compartment joint spaces appear within no rmal limits. The overlying soft tissue appears unremarkable. IMPRESSION: There is no acute fracture or dislocation ICD 10 NO FRACTURE, INITIAL EVALUATION
--- NOTE | 2022-10-09 14:37 | ED ---
Lower Extremity Injury HPI - General Chief Complaint: Extremity Injury, Lower Stated Complaint: KNEE PAIN Time Seen by Provider: 10/09/22 13:46 Source: patient, RN notes reviewed Mode of arrival: ambulatory Limitations: no limitations - History of Present Illness Initial Comments: 32-year-old female presents emergency Department with chief complaint of left knee pain. Patient states that she had an angiogram work when month ago states started hurting her one week ago. She is unsure this is related. Patient states she has medial left knee pain that is worse with flexion better rest and extension. No paresthesias. - Related Data Home Medications Medication Instructions Recorded Confirmed Phentermine HCl [Adipex-P] 37.5 mg PO QAM PRN 07/02/16 11/30/17 Previous Rx's Medication Instructions Recorded cephALEXin [Keflex] 500 mg PO BID #20 capsule 01/24/18 Allergies Allergy/AdvReac Type Severity Reaction Status Date / Time Sulfa (Sulfonamide Allergy Unknown Rash/Hives Verified 10/09/22 13:46 Antibiotics) Review of Systems ROS Statement: Those systems with pertinent positive or pertinent negative responses have been documented in the HPI. ROS Other: All systems not noted in ROS Statement are negative. Past Medical History Additional Past Medical History / Comment(s): Hx of ovarian cyst, current issues with diarrhea and constipation. History of Any Multi-Drug Resistant Organisms: None Reported Past Surgical History: Section, Uterine Ablation Additional Past Surgical History / Comment(s): Ceserean Section X2. Past Anesthesia/Blood Transfusion Reactions: No Reported Reaction Past Psychological History: Anxiety Past Alcohol Use History: None Reported Past Drug Use History: None Reported - Past Family History Mother Family Medical History: No Reported History General Exam Limitations: no limitations General appearance: alert, in no apparent distress Head exam: Present: atraumatic, normocephalic, normal inspection Respiratory exam: Present: normal lung sounds bilaterally. Absent: respiratory distress, wheezes, rales, rhonchi, stridor Cardiovascular Exam: Present: regular rate, normal rhythm, normal heart sounds. Absent: systolic murmur, diastolic murmur, rubs, gallop, clicks Extremities exam: Present: other (Left knee there is medial knee tenderness no laxity valgus varus normal anterior posterior drawer test.) Course Vital Signs 10/09/22 13:42 Temperature 98.1 F Pulse Rate 63 Respiratory 18 Rate Blood Pressure 101/65 O2 Sat by Pulse 98 Oximetry Medical Decision Making - Medical Decision Making Was pt. sent in by a medical professional or institution (RAMESH Gee, MARKETING COMMUNICATIONS ASSISTANT, urgent care, hospital, or residential...) When possible be specific @ -No Did you speak to anyone other than the patient for history (EMS, parent, family, police, friend...)? What history was obtained from this source @ -No Did you review nursing and triage notes (agree or disagree)? Why? @ -I reviewed and agree with nursing and triage notes Were old charts reviewed (outside hosp., previous admission, EMS record, old EKG, old radiological studies, urgent care reports/EKG's, residential records)? Report findings @ -No old charts were reviewed Differential Diagnosis (chest pain, altered mental status, abdominal pain women, abdominal pain men, vaginal bleeding, weakness, fever, dyspnea, syncope, headache, dizziness, GI bleed, back pain, seizure, CVA, palpatations, mental health, musculoskeletal)? @ -Left knee sprain meniscus injury, tibial fracture, this is not all inclusive list EKG interpreted by me (3pts min.). @ -None X-rays interpreted by me (1pt min.). @ -Left knee x-ray no acute abnormality. CT interpreted by me (1pt min.). @ -None done U/S interpreted by me (1pt. min.). @ -None done What testing was considered but not performed or refused? (CT, X-rays, U/S, labs)? Why? @ -None What meds were considered but not given or refused? Why? @ -None Did you discuss the management of the patient with other professionals (professionals i.e. RAMESH Gee, MARKETING COMMUNICATIONS ASSISTANT, lab, RT, psych nurse, social studies teacher, multimedia programmer, teacher, energy control officer, special education case manager)? Give summary @ -No Was smoking cessation discussed for >3mins.? @ -No Was critical care preformed (if so, how long)? @ -No Were there social determinants of health that impacted care today? How? (Homelessness, low income, unemployed, alcoholism, drug addiction, transportation, low edu. Level, literacy, decrease access to med. care, nursing home, rehab)? @ -No Was there de-escalation of care discussed even if they declined (Discuss DNR or withdrawal of care, Hospice)? DNR status @ -No What co-morbidities impacted this encounter? (DM, HTN, Smoking, COPD, CAD, Cancer, CVA, ARF, Chemo, Hep., AIDS, mental health diagnosis, sleep apnea, morbid obesity)? @ -None Was patient admitted / discharged? Hospital course, mention meds given and route, prescriptions, significant lab abnormalities, going to OR and other pertinent info. @ -Discharge patient has a left knee sprain patient was given supportive treatment, brace and advised to wear and to follow-up with orthopedics as needed. Undiagnosed new problem with uncertain prognosis? @ -No Drug Therapy requiring intensive monitoring for toxicity (Heparin, Nitro, Insulin, Cardizem)? @ -No Were any procedures done? @ -No Diagnosis/symptom? @ -Left knee sprain Acute, or Chronic, or Acute on Chronic? @ -Acute Uncomplicated (without systemic symptoms) or Complicated (systemic symptoms)? @ -Uncomplicated Side effects of treatment? @ -No Exacerbation, Progression, or Severe Exacerbation? @ -No Poses a threat to life or bodily function? How? (Chest pain, [place], [place], pneumonia, PE, COPD, DKA, ARF, appy, cholecystitis, CVA, Diverticulitis, Homicidal, Suicidal, threat to staff... and all critical care pts) @ -No Disposition Clinical Impression: Strain of left knee Disposition: HOME SELF-CARE Condition: Stable Instructions (If sedation given, give patient instructions): Knee Sprain (ED) Additional Instructions: Please return to the Emergency Department if symptoms worsen or any other concerns. Is patient prescribed a controlled substance at d/c from ED?: No Referrals: Sukhdev Hinojosa MD [Primary Care Provider] - 1-2 days Nghia Peng MD [STAFF PHYSICIAN] - 1-2 days Time of Disposition: 14:37
== END 2022-10-09 14:40 | disposition home or self-care (01) ==
LOC: EC 13:39
DX: S83.92XA Sprain of unspecified site of left knee, initial encounter (principal); Z88.2 Allergy status to sulfonamides; Z86.59 Personal history of other mental and behavioral disorders; W22.8XXA Striking against or struck by other objects, initial encounter
CPT/HCPCS: 99283

== ENCOUNTER 2023-03-04 16:32 | Emergency (ER) | payer OTHER ==
--- NOTE | 2023-03-04 16:42 | ED ---
Extremity Problem HPI - General Source: patient Mode of arrival: ambulatory Limitations: no limitations <Jason Lindsay - Last Filed: 03/04/23 16:42> <Yunier Tellez - Last Filed: 03/04/23 19:43> - General Chief complaint: Extremity Problem,Nontraumatic Stated complaint: left arm numbness Time Seen by Provider: 03/04/23 16:42 - History of Present Illness Initial comments: 32-year-old female presenting with chief complaint of left hand and arm pain and numbness for several days. (Jason Lindsay) - Related Data Home Medications Medication Instructions Recorded Confirmed Phentermine HCl [Adipex-P] 37.5 mg PO QAM PRN 07/02/16 11/30/17 Previous Rx's Medication Instructions Recorded cephALEXin [Keflex] 500 mg PO BID #20 capsule 01/24/18 Allergies Allergy/AdvReac Type Severity Reaction Status Date / Time Sulfa (Sulfonamide Allergy Unknown Rash/Hives Verified 03/04/23 16:40 Antibiotics) Review of Systems ROS Other: All systems not noted in ROS Statement are negative. <Jason Lindsay - Last Filed: 03/04/23 16:42> ROS Other: All systems not noted in ROS Statement are negative. <Yunier Tellez - Last Filed: 03/04/23 19:43> ROS Statement: Those systems with pertinent positive or pertinent negative responses have been documented in the HPI. Past Medical History Additional Past Medical History / Comment(s): Hx of ovarian cyst, current issues with diarrhea and constipation. History of Any Multi-Drug Resistant Organisms: None Reported Past Surgical History: Section, Uterine Ablation Additional Past Surgical History / Comment(s): Ceserean Section X2. Past Anesthesia/Blood Transfusion Reactions: No Reported Reaction Past Psychological History: Anxiety Past Alcohol Use History: None Reported Past Drug Use History: None Reported - Past Family History Mother Family Medical History: No Reported History <Jason Lindsay - Last Filed: 03/04/23 16:42> General Exam Limitations: no limitations <Jason Lindsay - Last Filed: 03/04/23 16:42> Course Vital Signs 03/04/23 16:37 Temperature 98.5 F Pulse Rate 73 Respiratory 16 Rate Blood Pressure 125/86 O2 Sat by Pulse 99 Oximetry Medical Decision Making - Lab Data Result diagrams: 03/04/23 17:38 03/04/23 17:38 <Yunier Tellez - Last Filed: 03/04/23 19:43> - Lab Data Lab Results 03/04/23 03/04/23 Range/Units 17:38 17:38 WBC 7.2 (3.8-10.6) k/uL RBC 4.50 (3.80-5.40) m/uL Hgb 13.4 (11.4-16.0) gm/dL Hct 40.7 (34.0-46.0) % MCV 90.6 (80.0-100.0) fL MCH 29.8 (25.0-35.0) pg MCHC 32.9 (31.0-37.0) g/dL RDW 11.9 (11.5-15.5) % Plt Count 272 (150-450) k/uL MPV 7.2 Neutrophils % 68 % Lymphocytes % 25 % Monocytes % 4 % Eosinophils % 2 % Basophils % 0 % Neutrophils # 4.9 (1.3-7.7) k/uL Lymphocytes # 1.8 (1.0-4.8) k/uL Monocytes # 0.3 (0-1.0) k/uL Eosinophils # 0.1 (0-0.7) k/uL Basophils # 0.0 (0-0.2) k/uL Sodium 139 (137-145) mmol/L Potassium 4.7 (3.5-5.1) mmol/L Chloride 106 (98-107) mmol/L Carbon Dioxide 24 (22-30) mmol/L Anion Gap 9 mmol/L BUN 14 (7-17) mg/dL Creatinine 0.71 (0.52-1.04) mg/dL Est GFR (CKD-EPI)AfAm >90 (>60 ml/min/1.73 sqM) Est GFR (CKD-EPI)NonAf >90 (>60 ml/min/1.73 sqM) Glucose 88 (74-99) mg/dL Calcium 9.4 (8.4-10.2) mg/dL Total Bilirubin 0.2 (0.2-1.3) mg/dL AST 19 (14-36) U/L ALT 11 (4-34) U/L Alkaline Phosphatase 58 (38-126) U/L Total Protein 7.2 (6.3-8.2) g/dL Albumin 4.1 (3.5-5.0) g/dL Disposition <Jason Lindsay - Last Filed: 03/04/23 16:42> Is patient prescribed a controlled substance at d/c from ED?: No <Yunier Tellez - Last Filed: 03/04/23 19:43> Clinical Impression: Paresthesia of arm Disposition: HOME SELF-CARE Condition: Good Instructions (If sedation given, give patient instructions): Paresthesia (ED) Referrals: Sukhdev Hinojosa MD [Primary Care Provider] - 1-2 days Marta Gomez MD [REFERRING] - 1-2 days Migdalia Martinez DO [Doctor of Osteopathic Medicine] - 1-2 days
--- NOTE | 2023-03-04 17:54 | US ---
EXAMINATION TYPE: US venous doppler duplex UE LT DATE OF EXAM: 03/04/2023 COMPARISON: NONE CLINICAL INDICATION: Female, 32 years old with history of numbness/pain; numbness throughout arm, no swelling SIDE PERFORMED: Left Left Arm: Negative for DVT IMPRESSION: Grayscale, color doppler, spectral doppler imaging performed of the deep veins of the upper extremiti es. There is normal flow, compressibility and vascular waveforms.
[2023-03-04 18:02] LABS: Basophils % (A) 0 %; Eosinophils # (A) 0.1 k/uL (0-0.7); Eosinophils % (A) 2 %; HCT 40.7 % (34.0-46.0); HGB 13.4 gm/dL (11.4-16.0); Lymphocytes # (A) 1.8 k/uL (1.0-4.8); Lymphocytes % (A) 25 %; MCH 29.8 pg (25.0-35.0); MCHC 32.9 g/dL (31.0-37.0); MCV 90.6 fL (80.0-100.0); Mean Platelet Volume 7.2; Monocytes # (A) 0.3 k/uL (0-1.0); Monocytes % (A) 4 %; Neutrophils # (A) 4.9 k/uL (1.3-7.7); Neutrophils % (A) 68 %; Platelet Count 272 k/uL (150-450); RDW 11.9 % (11.5-15.5); WBC 7.2 k/uL (3.8-10.6)
[2023-03-04 18:12] LABS: ALT 11 U/L (4-34); AST 19 U/L (14-36); African American GFR (CKD) >90 (>60 ml/min/1.73 sqM); Albumin 4.1 g/dL (3.5-5.0); Alkaline Phosphatase 58 U/L (38-126); Anion Gap 9 mmol/L; Blood Urea Nitrogen 14 mg/dL (7-17); Calcium 9.4 mg/dL (8.4-10.2); Carbon Dioxide 24 mmol/L (22-30); Chloride 106 mmol/L (98-107); Glucose 88 mg/dL (74-99); Non-African American GFR(CKD) >90 (>60 ml/min/1.73 sqM); Potassium 4.7 mmol/L (3.5-5.1); Sodium 139 mmol/L (137-145); Total Bilirubin 0.2 mg/dL (0.2-1.3); Total Protein 7.2 g/dL (6.3-8.2)
[2023-03-04 20:11] VITALS: BP 100/63; PULSE 57; RESP 18; TEMP 98.7
== END 2023-03-04 20:10 | disposition home or self-care (01) ==
LOC: EC 16:32
DX: R20.2 Paresthesia of skin (principal); Z86.59 Personal history of other mental and behavioral disorders; Z88.2 Allergy status to sulfonamides
CPT/HCPCS: 36415; 80053; 85025; 99284